=== PATIENT | male | born 1975 | race Caucasian/White ===

== ENCOUNTER 2017-10-21 16:10 | Emergency (ER) | payer BC ==
[~2017-10-21] VITALS: Ht 188 cm; Wt 98.0 kg
[~2017-10-21 16:10] MED LIST: 12 HOUR DECONG120 M1 PO; ALLEGRA ALLERG180 MG PO; ALLEGRA-D 121 TABLET PO; ATORVASTATIN CA40 MG PO; CLOPIDOGREL75 MG PO; DAILY VITAMIN1 EAC8 PO; ENDOCET 5-3251 EACH PO; ERGOCALCIF50000 UNIT PO; HYDROCODON-ACE1 EAC7 PO; LEVAQUIN750 MG PO; LEVOFLOXACIN750 MG PO; LOPRESSOR25 MG PO; LOVENOX40 MG/0.4 SC; NITROSTAT0.4 MG SL; TYLENOL REGULA325 MG PO
[2017-10-21 16:48] LABS: BASOPHIL (%) 0.2 % (0-1); EOSINOPHIL (%) 0.6 % (0-5); EOSINOPHIL COUNT 0.1 K/uL (0-0.3); HEMATOCRIT 50.7 % (38.0-50.0); HEMOGLOBIN 17.5 G/DL (12.5-16.6); IMMATURE GRANULOCYTE (%) 0.2 % (0.0-0.7); LYMPHOCYTE (%) 12.5 % (15-42); LYMPHOCYTE COUNT 1.5 K/uL (1.0-2.8); MCH 30.7 PG (29.0-34.0); MCHC 34.5 G/DL (30.0-36.0); MCV 88.9 FL (86-99); MONOCYTE (%) 7.8 % (3-12); NEUTROPHIL (%) 78.7 % (45-76); NEUTROPHIL COUNT 9.6 K/uL (1.8-6.4); PLATELET COUNT 249 K/uL (156-360); RBC DIS.WIDTH-CV 12.5 % (11.8-14.6); WHITE BLOOD COUNT 12.2 K/uL (4.1-10.2)
[2017-10-21 16:54] LABS: ALBUMIN 4.7 g/dL (3.2-4.8); CHLORIDE 102 mEq/L (99-109); SODIUM 140 mEq/L (136-147)
[2017-10-21 16:55] LABS: MAGNESIUM 2.5 mg/dL (1.3-2.7)
[2017-10-21 16:57] LABS: GLUCOSE 127 mg/dL (70-99); TOTAL PROTEIN 8.2 g/dL (6.4-8.3)
[2017-10-21 16:58] LABS: TOTAL BILIRUBIN 1.1 mg/dL (0.0-1.0)
[2017-10-21 17:00] LABS: ALKALINE PHOSPHATASE 103 IU/L (3-129); CREATININE 1.2 mg/dL (0.6-1.3); GFR ESTIMATE (CALCULATED) > 59 mL/min/ (58.99-99999)
[2017-10-21 17:01] LABS: UREA NITROGEN (BUN) 14 mg/dL (9-23)
[2017-10-21 17:02] LABS: AST (GOT) 47 IU/L (2-34)
[2017-10-21 17:03] LABS: ALT (GPT) 81 IU/L (3-49)
[2017-10-21 17:04] LABS: LIPASE 11 U/L (1.0-51.0)
[2017-10-21 17:07] LABS: TROP-I INTERPRETATION NEGATIVE; TROPONIN-I < 0.01 ng/mL (0.0-0.30)
[2017-10-21 18:23] LABS: APPEARANCE CLEAR ((CLEAR)); BILIRUBIN NEGATIVE; BLOOD NEGATIVE; COLOR YELLOW ((YELLOW)); GLUCOSE (STRIP) NEGATIVE; KETONES 20; LEUKOCYTES NEGATIVE; NITRITE NEGATIVE; PROTEIN (STRIP) 30; SPECIFIC GRAVITY 1.031 (1.000-1.030); UCUL ADDED? NO
[2017-10-21] MEDS ORDERED: ZOFRAN ODT4 MG PO (18:59)
[2017-10-21 19:35] VITALS: BP 143/80
== END 2017-10-21 19:38 | disposition home or self-care (01) ==
LOC: EME 16:10
PROVIDERS: Emergency Medicine
DX: R11.2 Nausea with vomiting, unspecified (principal); R10.84 Generalized abdominal pain; Z87.891 Personal history of nicotine dependence
CPT/HCPCS: 80053; 81003; 83690; 83735; 84484; 85025; 93005; 99281; 99284; J2405; J7040